=== PATIENT | female | born 1950 | race Caucasian/White ===

== ENCOUNTER → 2018-04-04 | Outpatient (CLI) | payer MEDICARE, OTHER | END | disposition home or self-care (01) | LOC: CFH 12:00 | PROVIDERS: ATTEND Internal Medicine | DX: N63.12 Unspecified lump in the right breast, upper inner quadrant (principal) | CPT/HCPCS: 77065 ==

== ENCOUNTER → 2018-04-11 | Outpatient (CLI) | payer MEDICARE, OTHER ==
[~2018-04-11] MED LIST: LIDOCAINE 1%, 20ML ONE; LIDOCAINE 1%-EPI 1:100K, 20ML ONE; SODIUM BICARBONATE 4.0%, 5ML ONE
== END | disposition home or self-care (01) ==
LOC: CFH 07:33
PROVIDERS: ATTEND Internal Medicine
DX: N63.10 Unspecified lump in the right breast, unspecified quadrant (principal)
CPT/HCPCS: 19083; 88305; J3490

== ENCOUNTER → 2018-05-07 | Outpatient (CLI) | payer MEDICARE, OTHER ==
[~2018-05-07] MED LIST changes: +GADOBUTROL 7.5 MMOL/7.5 ML VIAL ONE; -LIDOCAINE 1%, 20ML ONE; -LIDOCAINE 1%-EPI 1:100K, 20ML ONE; -SODIUM BICARBONATE 4.0%, 5ML ONE
== END | disposition home or self-care (01) ==
LOC: CFH 07:49
PROVIDERS: ATTEND Internal Medicine
DX: N63.10 Unspecified lump in the right breast, unspecified quadrant (principal)
CPT/HCPCS: 82565; A9585; C8908

== ENCOUNTER → 2018-05-30 | Outpatient (CLI) | payer MEDICARE, OTHER | END | disposition home or self-care (01) | LOC: CFH 06:46 | PROVIDERS: ATTEND Internal Medicine | DX: N64.89 Other specified disorders of breast (principal) | CPT/HCPCS: 19085; 77065; 88305; A9585; 88341; 88342; 88360 ==

== ENCOUNTER 2018-06-10 07:25 | Outpatient (CLI) | payer MEDICARE, OTHER ==
[2018-06-10] MEDS ORDERED: LIDOCAINE 1%-EPI 1:100K, 20ML ONE (08:00)
[2018-06-10] MEDS ORDERED: SODIUM BICARBONATE 4.0%, 5ML ONE (08:00)
[2018-06-20] MEDS ORDERED: DIVA500T4 PO (12:16)
== END 2018-06-20 14:57 | disposition home or self-care (01) ==
LOC: CFH 07:25
PROVIDERS: ATTEND Internal Medicine
DX: N63.10 Unspecified lump in the right breast, unspecified quadrant (principal)
CPT/HCPCS: 19281; J3490

== ENCOUNTER 2018-06-23 07:16 | Day surgery (SDC) | payer MEDICARE, OTHER ==
[~2018-06-23] VITALS: Ht 162.6 cm; Wt 66.1 kg
[~2018-06-23 07:16] MED LIST changes: +BUPIVACAINE/PF-EPI 0.5% 1:200K ONE; +DIVA500T4 PO; -GADOBUTROL 7.5 MMOL/7.5 ML VIAL ONE; +ISOSULFAN BLUE 10 MG/ML, 5ML IV ONE
[2018-06-23 07:57] VITALS: BP 133/85
[2018-06-23] MEDS ORDERED: LACTATED RINGERS 1,000 ML IV SCH (07:59)
[2018-06-23] MEDS ORDERED: LIDOCAINE/PF 1%, 30ML ONE (08:20)
[2018-06-23] MEDS ORDERED: FENTANYL PF 100 MCG/2ML ONE (09:56)
[2018-06-23] MEDS ORDERED: MIDAZOLAM 1 MG/ML, 2ML ONE (09:56)
[2018-06-23] MEDS ORDERED: PROPOFOL 10 MG/ML, 20ML ONE (10:22)
[2018-06-23] MEDS ORDERED: ONDANSETRON 2MG/ML, 2ML ONE (10:22)
[2018-06-23] MEDS ORDERED: DEXAMETHASONE 4 MG/ML, 1ML ONE (10:22)
[2018-06-23] MEDS ORDERED: CEFAZOLIN 1,000 MG ONE (10:22)
[2018-06-23] MEDS ORDERED: KETOROLAC 30 MG/1 ML IV PRN (11:00)
[2018-06-23] MEDS ORDERED: ACETAMINOPHEN 325 MG TABLET PO PRN (11:00)
[2018-06-23] MEDS ORDERED: HYDROmorphone 2 MG/ML, 1ML IVPush PRN (11:00)
[2018-06-23] MEDS ORDERED: ALBUTEROL SULFATE 2.5 MG/3 ML NPPB PRN (11:00)
[2018-06-23] MEDS ORDERED: LABETALOL 5MG/ML, 20ML IV PRN (11:00)
[2018-06-23] MEDS ORDERED: FENTANYL PF 100 MCG/2ML IV PRN (11:00)
[2018-06-23] MEDS ORDERED: OXYcodone 5 MG/5 ML ORAL.SOL UDC PO PRN (11:00)
[2018-06-23] MEDS ORDERED: LORazepam 2 MG/ML, 1ML IVPush PRN (11:00)
[2018-06-23] MEDS ORDERED: hydrALAzine 20 MG/ML, 1ML IV PRN (11:00)
[2018-06-23] MEDS ORDERED: PROMETHAZINE 25 MG/ML, 1ML IV PRN (11:00)
[2018-06-23] MEDS ORDERED: MEPERIDINE/PF 25MG/0.5ML IVPush PRN (11:00)
[2018-06-23] MEDS ORDERED: ACETAMINOPHEN 650 MG/20.3 ML UDC ONE (11:43)
[2018-06-23] MEDS ORDERED: KETOROLAC 30 MG/1 ML ONE (11:43)
== END 2018-06-23 14:20 | disposition home or self-care (01) ==
LOC: OUT 07:16 → EDSTATUS 10:30 → OUT 14:20
PROVIDERS: ATTEND Surgery
DX: D05.11 Intraductal carcinoma in situ of right breast (principal); R59.1 Generalized enlarged lymph nodes; F31.9 Bipolar disorder, unspecified; Z85.828 Personal history of other malignant neoplasm of skin; Z72.89 Other problems related to lifestyle; Z87.891 Personal history of nicotine dependence; Z90.11 Acquired absence of right breast and nipple; Z98.890 Other specified postprocedural states
CPT/HCPCS: 19125; 38525; 38792; 76098; 88307; 93005; A9541; C9898; J0690; J1100; J1885; J2250; J2405; J2704; J3010; J3490; J7120; J2060

== ENCOUNTER → 2018-07-18 | Outpatient (CLI) | payer MEDICARE, OTHER ==
[~2018-07-18] MED LIST changes: -BUPIVACAINE/PF-EPI 0.5% 1:200K ONE; -ISOSULFAN BLUE 10 MG/ML, 5ML IV ONE
== END | disposition home or self-care (01) ==
LOC: ROC 08:11
PROVIDERS: ATTEND Radiology Radiation Oncology
DX: Z02.9 Encounter for administrative examinations, unspecified (principal)

== ENCOUNTER → 2018-09-02 | Outpatient (CLI) | payer MEDICARE, OTHER | END | disposition home or self-care (01) | LOC: CFH 08:08 | DX: M85.88 Other specified disorders of bone density and structure, other site (principal); N95.9 Unspecified menopausal and perimenopausal disorder | CPT/HCPCS: 77080 ==

== ENCOUNTER 2018-10-30 08:36 | Outpatient (CLI) | payer MEDICARE, OTHER | END 2018-10-30 23:59 | disposition home or self-care (01) | LOC: ROC 08:36 | PROVIDERS: ATTEND Radiology Radiation Oncology | DX: Z02.9 Encounter for administrative examinations, unspecified (principal) ==

== ENCOUNTER → 2018-11-03 | Outpatient (CLI) | payer MEDICARE, OTHER | END | disposition home or self-care (01) | LOC: ROC 08:33 | PROVIDERS: ATTEND Radiology Radiation Oncology | DX: C50.411 Malignant neoplasm of upper-outer quadrant of right female breast (principal) | CPT/HCPCS: G0463 ==

== ENCOUNTER → 2018-12-12 | Outpatient (CLI) | payer MEDICARE, OTHER | END | disposition home or self-care (01) | LOC: CFH 13:37 | PROVIDERS: ATTEND Radiology Radiation Oncology | DX: C50.411 Malignant neoplasm of upper-outer quadrant of right female breast (principal); I10 Essential (primary) hypertension | CPT/HCPCS: 76641; 77066; G0279 ==

== ENCOUNTER → 2019-12-15 | Outpatient (CLI) | payer MEDICARE, OTHER | END | disposition home or self-care (01) | LOC: CFH 14:11 | PROVIDERS: ATTEND Internal Medicine Hematology & Oncology | DX: C50.211 Malignant neoplasm of upper-inner quadrant of right female breast (principal); M85.80 Other specified disorders of bone density and structure, unspecified site; R92.2 Inconclusive mammogram | CPT/HCPCS: 76641 ==

== ENCOUNTER 2019-12-16 09:05 | Outpatient (CLI) | payer MEDICARE, OTHER | END 2019-12-16 23:59 | disposition home or self-care (01) | LOC: CFH 09:05 | PROVIDERS: ATTEND Internal Medicine Hematology & Oncology | DX: C50.211 Malignant neoplasm of upper-inner quadrant of right female breast (principal); M85.80 Other specified disorders of bone density and structure, unspecified site; R92.2 Inconclusive mammogram | CPT/HCPCS: 77066; G0279 ==

== ENCOUNTER 2020-05-30 11:46 | Day surgery (SDC) | payer MEDICARE, OTHER ==
[~2020-05-30] VITALS: Ht 162.6 cm; Wt 64.2 kg
[~2020-05-30 11:46] MED LIST changes: +BUPIVACAINE/PF 0.25% ONE; +NEOMY/POLYMYXIN B GU IRR. 1 ML ONE
[2020-05-30] MEDS ORDERED: ASCO100018 PO (12:17)
[2020-05-30] MEDS ORDERED: RISE35TA PO (12:17)
[2020-05-30] MEDS ORDERED: ANAS1TAB49 PO (12:19)
[2020-05-30 12:20] VITALS: BP 134/85
[2020-05-30] MEDS ORDERED: CHLORHEXIDINE 15 ML UDC ONE (12:25)
[2020-05-30] MEDS ORDERED: CHLORHEXIDINE 15 ML UDC MM ONE (12:30)
[2020-05-30] MEDS ORDERED: LACTATED RINGERS 1,000 ML IV SCH (12:30)
[2020-05-30] MEDS ORDERED: FENTANYL PF 250 MCG/5ML ONE (12:36)
[2020-05-30] MEDS ORDERED: KETOROLAC 30 MG/1 ML ONE (12:44)
[2020-05-30] MEDS ORDERED: CEFAZOLIN 1,000 MG ONE (12:44)
[2020-05-30] MEDS ORDERED: DEXAMETHASONE 4 MG/ML, 1ML ONE (12:44)
[2020-05-30] MEDS ORDERED: PROPOFOL 10 MG/ML, 20ML ONE (12:44)
[2020-05-30] MEDS ORDERED: GLYCOPYRROLATE 0.2MG/1ML, 5ML ONE (12:44)
[2020-05-30] MEDS ORDERED: SUCCINYLCHOLINE 20 MG/ML, 10ML ONE (12:44)
[2020-05-30] MEDS ORDERED: ONDANSETRON 2MG/ML, 2ML ONE (12:44)
[2020-05-30] MEDS ORDERED: NEOSTIGMINE 1 MG/ML, 10ML ONE (12:44)
[2020-05-30] MEDS ORDERED: ROCURONIUM 10 MG/ML,10ML ONE (12:44)
[2020-05-30] MEDS ORDERED: ONDANSETRON 2MG/ML, 2ML IVPush PRN (13:30)
[2020-05-30] MEDS ORDERED: hydrALAzine 20 MG/ML, 1ML IV PRN (13:30)
[2020-05-30] MEDS ORDERED: LABETALOL 5MG/ML, 20ML IV PRN (13:30)
[2020-05-30] MEDS ORDERED: ACETAMINOPHEN 325 MG TABLET PO PRN (13:30)
[2020-05-30] MEDS ORDERED: HYDROmorphone 1 MG/ML, 1ML INJ IVPush PRN (13:30)
[2020-05-30] MEDS ORDERED: OXYcodone 5 MG/5 ML ORAL.SOL UDC PO PRN (13:30)
[2020-05-30] MEDS ORDERED: FENTANYL PF 100 MCG/2ML ONE (14:40)
[2020-05-30] MEDS ORDERED: OXYcodone 5 MG/5 ML ORAL.SOL UDC ONE (14:40)
[2020-05-30] MEDS: FENTANYL PF 100 MCG/2ML IV PRN ×2 (14:45→15:10)
== END 2020-05-30 19:05 | disposition home or self-care (01) ==
LOC: OUT 11:46
PROVIDERS: ATTEND Obstetrics & Gynecology Female Pelvic Medicine and Reconstructive Surgery
DX: N81.2 Incomplete uterovaginal prolapse (principal); Z20.828 Contact with and (suspected) exposure to other viral communicable diseases; N39.46 Mixed incontinence; Z79.899 Other long term (current) drug therapy; Z85.3 Personal history of malignant neoplasm of breast; Z98.890 Other specified postprocedural states
CPT/HCPCS: 57265; 57282; 57288; 58552; 87635; 88307; 93005; C1771; J2405; J3010; J7120; J0690; J1100; J1885; J2704; J2710; J0330

== ENCOUNTER → 2020-09-15 | Outpatient (CLI) | payer MEDICARE, OTHER ==
[~2020-09-15] MED LIST changes: +ANAS1TAB49 PO; +ASCO100018 PO; -BUPIVACAINE/PF 0.25% ONE; -NEOMY/POLYMYXIN B GU IRR. 1 ML ONE; +RISE35TA PO
== END | disposition home or self-care (01) ==
LOC: CFH 09:28
PROVIDERS: ATTEND Internal Medicine Hematology & Oncology
DX: C50.211 Malignant neoplasm of upper-inner quadrant of right female breast (principal); M85.80 Other specified disorders of bone density and structure, unspecified site; M85.89 Other specified disorders of bone density and structure, multiple sites
CPT/HCPCS: 77080

== ENCOUNTER → 2020-12-20 | Outpatient (CLI) | payer MEDICARE, OTHER | END | disposition home or self-care (01) | LOC: CFH 09:00 | PROVIDERS: ATTEND Internal Medicine Hematology & Oncology | DX: Z12.31 Encounter for screening mammogram for malignant neoplasm of breast (principal); C50.211 Malignant neoplasm of upper-inner quadrant of right female breast; M85.80 Other specified disorders of bone density and structure, unspecified site | CPT/HCPCS: 76641; 77063; 77067 ==